=== PATIENT | male | born 1960 | race Caucasian/White ===

== ENCOUNTER 2020-09-28 09:43 | Emergency (ER) | payer BC ==
[~2020-09-28] VITALS: Ht 177.8 cm; Wt 79.4 kg
[2020-09-28 09:55] VITALS: BP 134/88
--- NOTE | 2020-09-28 10:00 | NUR ---
Dr. Dawson at bedside for eval. Lac tray prepared.
[2020-09-28] MEDS ORDERED: LIDOCAINE HCL/MPF 1% 30 ML VIAL IJ ONE (10:01)
[2020-09-28] MEDS ORDERED: BACITRACIN ZINC OINT PACKET 1 EA PACKET TP ONE (10:26)
[2020-09-28] MEDS ORDERED: TDAP [DIPH/PERTUSSIS/TET] 0.5 ML VIAL IM ONE ×2 (10:27→10:30)
[2020-09-28] MEDS ORDERED: LIDOCAINE HCL/PF 1% 30 ML VIAL TP ONE (10:30)
--- NOTE | 2020-09-28 10:40 | NUR ---
Patient a/ox4, breathing even and unlabored, no sob noted, needs attended. LAC REPAIR DONE by Dr. Dawson. Splint applied on the affected finger. Patient discharged to home in stable condition. Written and verbal after care instructions given. Patient verbalizes understanding of instruction.
== END 2020-09-28 10:42 | disposition home or self-care (01) ==
LOC: ER 09:43
DX: S61.211A Laceration without foreign body of left index finger without damage to nail, initial encounter (principal); W26.0XXA Contact with knife, initial encounter; Y93.G3 Activity, cooking and baking; Y92.89 Other specified places as the place of occurrence of the external cause; Y99.8 Other external cause status
CPT/HCPCS: 12002; 90471; 90715; 99283; A6403; J3490 ×2